=== PATIENT | male | born 1975 | race Caucasian/White ===

== ENCOUNTER 2017-12-15 04:22 | Emergency (ER) | payer OTHER ==
[~2017-12-15] VITALS: Ht 175.3 cm; Wt 102.3 kg
[2017-12-15 04:29] VITALS: TEMP 97.2
[2017-12-15 04:43] LABS: BASO # 0.1 (0.0-0.2); BASO % 1.2 % (0.0-2.0); EOS # 0.3 (0.0-0.7); EOS % 3.9 % (0-4.0); GRAN # 2.7 (1.4-6.5); GRAN % 40.3 % (42.2-75.2); HEMATOCRIT 42.9 % (42.0-52.0); HEMOGLOBIN 15.1 g/dl (13.5-18.0); LYMPH # 2.9 (1.2-3.4); LYMPH % 43.2 % (20.0-51.0); MEAN CELL VOLUME 88 fl (80.0-100.0); MEAN CORPUSCULAR HEMOGLOBIN 31 pg (27.0-31.0); MEAN CORPUSCULAR HGB CONC 35 g/dl (33.0-37.0); MONO # 0.8 (0.1-0.6); MONO % 11.1 % (1.7-9.3); PLATELET COUNT 247 K/mm3 (130-400); RED BLOOD COUNT 4.87 M/mm3 (4.20-5.60)
[2017-12-15 04:55] LABS: ALANINE AMINOTRANSFERASE 38 U/L (21-72); ALBUMIN 4.5 gm/dL (3.5-5.0); ALKALINE PHOSPHATASE 50 U/L (50-136); ANION GAP 15 mmol/L (7-16); AST,SGOT 27 U/L (15-37); BILIRUBIN,TOTAL 0.7 mg/dL (0.0-1.0); BLOOD UREA NITROGEN 17 mg/dL (9-20); C-REACTIVE PROTEIN < 0.5 mg/dL (0.0-0.9); CALCIUM 9.5 mg/dL (8.4-10.2); CARBON DIOXIDE 26 mmol/L (22-30); CHLORIDE 102 mmol/L (98-107); CREATININE, serum 1.13 mg/dL (0.66-1.25); GLUCOSE 128 mg/dL (74-106); LIPASE 75 U/L (23-300); POTASSIUM 3.9 mmol/L (3.4-5.0); SODIUM 143 mmol/L (137-145); TOTAL PROTEIN 8.4 gm/dL (6.4-8.2)
[2017-12-15 05:04] LABS: COLLECTION METHOD CLEAN CATCH
[2017-12-15 05:11] LABS: MUCOUS Present /lpf; PH 5 (5-8); SQUAMOUS EPITHELIAL 0-2 /hpf; URINE APPEARANCE Cloudy; URINE BACTERIA Rare /hpf; URINE BILIRUBIN Negative (NEGATIVE); URINE BLOOD 3+ (NEGATIVE); URINE COLOR Amber; URINE GLUCOSE Negative (NEGATIVE); URINE KETONE Negative (NEGATIVE); URINE LEUKOCYTE ESTERASE Negative (NEGATIVE); URINE NITRATE Negative (NEGATIVE); URINE PROTEIN(semi-quant) 2+ (NEGATIVE); URINE RBC >50 /hpf; URINE UROBILINOGEN Negative (NEGATIVE)
[2017-12-15] MEDS ORDERED: HYZAAR 25 MG-101 TAB PO (05:37)
[2017-12-15] MEDS ORDERED: ZOFRAN ODT4 MG PO (06:45)
[2017-12-15] MEDS ORDERED: NORCO 325 MG-51 TAB PO (06:45)
[2017-12-15 06:57] VITALS: BP 124/88; PULSE 68
== END 2017-12-15 07:22 | disposition home or self-care (01) ==
LOC: COL.ER 04:22
PROVIDERS: Emergency Medicine
DX: N20.2 Calculus of kidney with calculus of ureter (principal); I10 Essential (primary) hypertension
CPT/HCPCS: J1170; J1885; J2405; J2550; J7030; Q9967

== ENCOUNTER 2018-02-24 15:19 | Day surgery (SDC) | payer OTHER ==
[~2018-02-24] VITALS: Ht 175.3 cm; Wt 97.7 kg
[~2018-02-24 15:19] MED LIST: HYZAAR 25 MG-101 TAB PO; NORCO 325 MG-51 TAB PO; ZOFRAN ODT4 MG PO
[2018-02-24] MEDS ORDERED: NORCO 325 MG-51 TAB PO (15:56)
[2018-02-24] MEDS ORDERED: HYZAAR 50-12.1 UDTAB PO (15:56)
[2018-02-24 16:06] VITALS: BP 139/87; PULSE 67; TEMP 97.7
[2018-02-24 19:21] VITALS: BP 119/81; PULSE 60; TEMP 97.7
[2018-02-24 19:40] VITALS: BP 136/84; PULSE 61
[2018-02-24 19:55] VITALS: BP 127/80; PULSE 57
[2018-02-24 20:25] VITALS: BP 120/80; PULSE 56; TEMP 98
== END 2018-02-24 20:30 | disposition home or self-care (01) ==
LOC: SDCO 15:19 → SURG 19:11 → SDCO 20:15
DX: N20.1 Calculus of ureter (principal); I10 Essential (primary) hypertension; Z83.3 Family history of diabetes mellitus; G47.33 Obstructive sleep apnea (adult) (pediatric); Z87.891 Personal history of nicotine dependence
CPT/HCPCS: OP; C1769; J0690; J2405; J2704; J3010; J7120; Q9967

== ENCOUNTER → 2020-08-03 | Outpatient (CLI) | payer OTHER ==
[~2020-08-03] MED LIST changes: +HYZAAR 50-12.1 UDTAB PO
== END ==
LOC: ZCOL.LAB 20:06
DX: Z01.89 Encounter for other specified special examinations (principal)